=== PATIENT | male | born 1970 | race Caucasian/White ===

== ENCOUNTER 2018-12-15 13:12 | Inpatient (IN) | payer OTHER ==
[~2018-12-15] VITALS: Ht 188 cm; Wt 88.0 kg
[2018-12-15] VITALS (30 sets, daily range): BP systolic 110–158; BP diastolic 72–112
[~2018-12-15 13:12] MED LIST: ADDERALL 10 MG10 MG; AUGMENTIN 875875 M1 PO; LISINOPRIL2.5 MG PO; NEXIUM 40 MG CA40 M1 PO; PERCOCET 5-3251 EACH; TRILEPTAL150 MG
[2018-12-15 13:31] LABS: ABSOLUTE BASOPHILS 0.1 thou/uL (0.0-0.2); ABSOLUTE EOSINOPHILS 0.1 thou/uL (0.0-0.7); ABSOLUTE LYMPHOCYTES 1.8 thou/uL (0.8-5.3); ABSOLUTE MONOCYTES 0.6 thou/uL (0.0-1.2); ABSOLUTE NEUTROPHILS 3.7 thou/uL (1.6-8.1); BASOPHILS 2.2 %; EOSINOPHILS 1.7 %; HEMATOCRIT 47.9 % (42.0-52.0); HEMOGLOBIN 16.8 gm/dL (14.0-18.0); MCH 30.5 pg (26.0-34.0); MCV 87.1 fL (80.0-100.0); MPV 7.2 fl. (7.2-11.1); NUCLEATED RBCS 0 /100WBC; PLATELET COUNT* 323 thou/uL (150-400); POLYS 59.1 %; RDW-CV 13.8 % (10.5-14.5); WBC 6.3 thou/uL (4.0-11.0)
[2018-12-15 13:50] LABS: CALCIUM 9.6 mg/dL (8.5-10.1); CREATININE 1.3 mg/dL (0.6-1.3); POTASSIUM 4.1 mmol/L (3.5-5.1); TROPONIN-I LEVEL 0.08 ng/mL (<0.06)
[2018-12-15 13:56] LABS: ALBUMIN 4.2 g/dL (3.4-5.0); CK-MB MASS 1.4 ng/mL (<0.5-3.6); MAGNESIUM 1.7 mg/dL (1.8-2.4); TOTAL BILIRUBIN 0.3 mg/dL (<0.1-1.0); TOTAL PROTEIN 7.9 g/dL (6.4-8.2)
[2018-12-15 14:26] LABS: APTT 30.8 Seconds (25.0-31.3); INR 1.2; PROTIME 12.7 Seconds (9.20-11.50)
[2018-12-15] MEDS ORDERED: CIPRO500 MG PO (15:23)
[2018-12-15] MEDS ORDERED: LISINOPRIL10 MG PO (15:23)
[2018-12-15] MEDS ORDERED: VENTOLIN HFA INH8 GM INH (15:23)
[2018-12-15] MEDS ORDERED: WELLBUTRIN XL300 MG PO (15:24)
[2018-12-15] MEDS ORDERED: AZO URINARY P97.5 MG PO (15:25)
[2018-12-15] MEDS ORDERED: FLOMAX0.4 MG PO (15:26)
[2018-12-15] MEDS ORDERED: ZYRTEC10 M5 PO (15:27)
[2018-12-15] MEDS ORDERED: LOXAPINE10 MG PO (15:32)
[2018-12-15] MEDS ORDERED: TRILEPTAL600 MG PO (15:33)
[2018-12-15] MEDS ORDERED: CLONAZEPAM 1 MG1 M1 PO (15:34)
--- NOTE | 2018-12-15 15:34 | EKG ---
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 : 1970 Requested By: Rei Jackson Order Number: [id number] MD: Neeraj Sierra Measurements Intervals [place] Rate: 95 P: SC: QRS: 69 QRSD: 104 T: 79 QT: 351 QTc: 442 Interpretive Statements sinus rhythm Inferoposterior infarct, acute (LCx) ST depression V1-V3, suggest recording posterior leads No previous ECG available for comparison Electronically Signed On 12-15-2018 15:34:46 CDT by Neeraj Sierra [email or web address] <ELECTRONICALLY SIGNED> By: Neeraj Sierra MD, [facility] 12/15/18 1534 1317 1317 Neeraj Sierra MD, [facility] /EPI
[2018-12-15] MEDS ORDERED: MELATONIN5 M1 PO (15:36)
--- NOTE | 2018-12-15 15:36 | EKG ---
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
--- NOTE | 2018-12-15 18:49 | CARD ---
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 Procedure Narrative The patient was brought emergently to the Cardiac Catheterization Laboratory and was prepped and draped in a sterile manner. The right wrist was infiltrated with 1% Lidocaine subcutaneous anesthesia. A Slender Glidesheath sheath was inserted into the RRA. Coronary angiography was performed using coronary diagnostic catheters. The right coronary system was accessed and visualized with a JR4 catheter. The left coronary system was accessed and visualized with a JL4 catheter. The left ventricle was accessed and visualized with a Angled PIG catheter. Left ventricular/Aortic Valve gradient assessed via catheter pullback. Left ventriculogram was performed in [place] projection. The patient tolerated the procedure well and there were no complications associated with the procedure. There was no hematoma. sheath removed and vascband placed [place] [address] CARDIAC CATH REPORT Name: DENNISSHERIF BAER Room: [address] IN [facility].#: [id number] Admission: 12/15/18 Attend Phys: Neeraj Sierra MD, F Discharge: Date of : 66 Report #: [id number] Fentanyl 75 mcg Dose: 1030 mGy Contrast Type and Amount: Omnipaque 255 ml Coronary Angiography The patient's coronary anatomy is co- dominant. Diagnostic Cath Left Main 0% stenosis LAD 50% mid stenosis Circumflex 70% after om1 and acutely occluded after om2 Right Coronary 30% mid and 30% distal stenosis noted Left Ventriculography The left ventricular ejection fraction is estimated to be 40-45%. Left ventricular wall motion abnormalities are present. There is no mitral insufficiency. mild hypokinesis noted of the inferior wall Hemodynamics The aortic pressure is 143/88 mmHg with a mean of 95 mmHg. The left ventricular pressure is 145/20 mmHg with a mean of mmHg. The left ventricular end diastolic pressure is 25 mmHg. There was no gradient across the aortic valve upon pullback. Pullback from the left ventricle to the aorta revealed no gradient across the aortic valve. PCI Technique Lesion Anticoagulation was achieved with Heparin. bolus of iv aggrastat given Percutaneous coronary intervention was performed on the mid circumflex artery segment. The lesion stenosis prior to intervention was 100% with CORINNE 0 flow. A 6FR XB 3.5 100CM Guide Catheter was used to engage the lm ostium. A IG: BMW 190cm Interventional Guidewire was used to cross the lesion. BALLOON DILATION A Balloon catheter Trek RX 2.5 X 8 was inserted and inflated up to 12.00atm for 42seconds. Repeat angiography revealed the following post-dilatation results: 60% stenosis. STENT DEPLOYMENT A drug-eluting stent Hardwick RX Stent 3.0X26mm was inserted and inflated up to 12.00atm for 42seconds. Repeat angiography revealed the following post-stent deployment results: 0% [place] [address] CARDIAC CATH REPORT Name: DENNISSHERIF BAER Room: [address] IN [facility]#: [id number] Admission: 12/15/18 Attend Phys: Neeraj Sierra MD, F Discharge: Date of : 66 Report #: [id number] Final angiography reveals 0 % stenosis with CORINNE 3 flow. COMMENTS Small second marginal branch appeared to be occluded at the end of the procedure as the stent covered the ostium of the vessel. Conclusion 1. Acute occlusion of the mid circumflex 2. placement of a single drug eluting stent in the mid circumflex 3. LVEF 40-45% Recommendations Smoking Cessation Aggressive Medical Therapy Medications Administered Ticagrelor <ELECTRONICALLY SIGNED> By: Neeraj Sierra MD, [facility] 12/15/181848 48 48Damalcolm Sierra MD, [facility] /INF
[2018-12-16] VITALS (49 sets, daily range): BP systolic 92–125; BP diastolic 48–98
[2018-12-16 03:27] LABS: ABSOLUTE BASOPHILS 0.1 thou/uL (0.0-0.2); ABSOLUTE EOSINOPHILS 0.1 thou/uL (0.0-0.7); ABSOLUTE LYMPHOCYTES 1.1 thou/uL (0.8-5.3); ABSOLUTE MONOCYTES 0.8 thou/uL (0.0-1.2); ABSOLUTE NEUTROPHILS 5.5 thou/uL (1.6-8.1); BASOPHILS 0.9 %; EOSINOPHILS 1.3 %; HEMATOCRIT 43.6 % (42.0-52.0); HEMOGLOBIN 15.2 gm/dL (14.0-18.0); LYMPHOCYTES 14.1 %; MCH 30.3 pg (26.0-34.0); MCHC 34.7 g/dL (28.0-37.0); MCV 87.2 fL (80.0-100.0); MONOCYTES 10.3 %; NUCLEATED RBCS 0 /100WBC; PLATELET COUNT* 254 thou/uL (150-400); POLYS 73.4 %; RDW-CV 14.2 % (10.5-14.5); WBC 7.5 thou/uL (4.0-11.0)
[2018-12-16 03:39] LABS: CALCIUM 8.9 mg/dL (8.5-10.1); CREATININE 1.1 mg/dL (0.6-1.3); POTASSIUM 4.4 mmol/L (3.5-5.1)
--- NOTE | 2018-12-16 10:44 | EKG ---
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: : 1970 Requested By: Neeraj Sierra Order Number: [id number] Reading MD: Terrance Wiley Measurements Intervals [place] Rate: 76 P: 67 [place]: 178 QRS: -22 QRSD: 98 T: 141 QT: 418 QTc: 471 Interpretive Statements Sinus rhythm Borderline left axis deviation Borderline low voltage, extremity leads Abnormal R-wave progression, early transition Abnormal T, consider ischemia, lateral leads Compared to ECG 12/15/2018 14:46:10 T-wave abnormality now present Possible ischemia now present Electronically Signed On 12-16-2018 10:44:29 CDT by Terrance Wiley [email or web address] <ELECTRONICALLY SIGNED> By: Terrance Wiley MD, FACC 12/16/18 1044 0906 0906 Terrance Wiley MD, FAC /EPI
--- NOTE | 2018-12-16 15:53 | H ---
[address] [address] HISTORY AND PHYSICAL Name: SHERIF CAMERON Room: [address] IN .R.#: [id number] Admission: 12/15/18 Attend Phys: Neeraj Sierra MD, F Discharge: Date of : 66 Report #: [id number] THIS REPORT FOR: //name// CC: Neeraj Alonso DO DATE OF SERVICE: 12/15/2018 HISTORY OF PRESENT ILLNESS: The patient is a 48-year-old white male who I was asked to see in the Emergency Room after he complained of chest pain. No old records available. The patient has no previous history of heart disease. He is not very active at this time. He has had no previous cardiac evaluation. He was doing well until today about an hour ago, he had the sudden onset of tightness in his chest, went into his jaw, became diaphoretic and is hard to breathe. He was lying on the couch at that time. He came in to the Emergency Room with his . He is found to have an acute inferior STEMI. I was asked to see him on an emergent basis. He does get short of breath with exertion. He has had no bleeding or fever. He does have a chronic cough. No swelling of his feet. He has had no palpitations or syncope. PAST MEDICAL HISTORY: He has had 3 abdominal surgeries for Crohn's disease. He has had an appendectomy, finger surgery, hypertension, manic depressive illness. MEDICATIONS: His medications include lisinopril, Wellbutrin in an effort to stop smoking, ____, loxapine, Klonopin as needed. ALLERGIES: He has an allergy to SULFA DRUGS. FAMILY HISTORY: His mother had heart disease. SOCIAL HISTORY: He is . He and his live in [place]. 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 He smokes 2 packs of cigarettes a day. REVIEW OF SYSTEMS: He has had no history of stroke. He does have a chronic cough. He has had a peptic ulcer years ago. He bleeds from hemorrhoids occasionally. No cancer. He has a history of manic depressive illness, sees a psychiatrist. No chronic skin condition. PHYSICAL EXAMINATION: GENERAL: Revealed a young male, who appeared in severe distress because of his chest pain. VITAL SIGNS: Blood pressure 130/80, pulse is 90. HEENT: He was anicteric. Conjunctivae pink. Mucous membranes appear dry. NECK: [place] [address] HISTORY AND PHYSICAL Name: SHERIF CAMERON Room: [address] IN ..#: [id number] Admission: 12/15/18 Attend Phys: Neeraj Sierra MD, F Discharge: Date of : 66 Report #: [id number] CHEST: Clear to auscultation. CARDIAC: Regular rate and rhythm. ABDOMEN: Soft. EXTREMITIES: Had no edema. Posterior tibial pulse 2+ bilaterally. SKIN: Warm, dry. NEUROLOGIC: Nonfocal. DIAGNOSTIC STUDIES: ECG showed sinus rhythm. There is ST segment elevation of up to a millimeter in II, III, aVF; reciprocal ST segment depression in lead V2, V3 and V4. IMPRESSION AND RECOMMENDATIONS: 1. Acute inferior ST elevation myocardial infarction. Recommend urgent cardiac catheterization. 2. Hypertension. The patient is on an JUDIE inhibitor. 3. Manic depressive illness. The patient is followed by Psychiatry. 4. Tobacco abuse. The patient currently takes Wellbutrin. 5. Chronic obstructive pulmonary disease with chronic bronchitis. <ELECTRONICALLY SIGNED> By: Neeraj Sierra MD, FACC 12/16/18 1553 1337 1709Damalcolm Sierra MD, FACC /nt
[2018-12-17] VITALS: BP 112/874
[2018-12-17 04:00] VITALS: BP 106/66
[2018-12-17 05:43] LABS: CHOLESTEROL 223 mg/dL (<200); HDL CHOLESTEROL 46 mg/dL (>40); LDL CHOLESTEROL 157 mg/dL (<100); TC:HDL 4.8 Ratio (Not establshd); TRIGLYCERIDE 104 mg/dL (<150); VLDL 21 mg/dL (<40)
[2018-12-17 05:50] LABS: SERUM ASSESSMENT Clear
[2018-12-17 08:00] VITALS: BP 120/75
--- NOTE | 2018-12-17 11:14 | EKG ---
[place] [address] ELECTROCARDIOGRAM REPORT Name: SHERIF CAMERON Room: [address] ADM IN .R.#: [id number] Admission: 12/15/18 Attend Phys: Neeraj Sierra MD, F Discharge: Date of : 66 Report #: [id number] THIS REPORT FOR: //name// [facility] Test Date: 2018-12-17 Test Time: 08:15:51 Pat Name: SHERIF CAMERON Department: Room: 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 12/17/18 1113 0815 4 Neeraj Sierra MD, [facility] /EPI
[2018-12-17 11:37] VITALS: BP 102/71
[2018-12-17 12:00] VITALS: BP 113/79
[2018-12-17] MEDS ORDERED: ASPIR 8181 MG PO (12:04)
[2018-12-17] MEDS ORDERED: ATORVASTATIN CA40 MG PO (12:05)
[2018-12-17] MEDS ORDERED: APAP650 PO (12:07)
[2018-12-17] MEDS ORDERED: CARVEDILOL3.125 MG PO (12:08)
[2018-12-17] MEDS ORDERED: BRILINTA90 MG PO (12:09)
[2018-12-17] MEDS ORDERED: NITROGLYCERIN0.4 MG SUBLING (12:10)
[2018-12-17] MEDS ORDERED: NICOTINE TRANSD21 M1 (12:11)
--- NOTE | 2018-12-18 13:22 | D ---
[address] [address] DISCHARGE SUMMARY Name: SHERIF CAMERON Room: [address] IN M.R.#: [id number] Admission: 12/15/18 Attend Phys: Neeraj Sierra MD, F Discharge: 12/17/18 Date of : 66 Report #: [id number] THIS REPORT FOR: //name// CC: Neeraj Alonso DATE OF SERVICE: 12/17/2018 DISCHARGE DIAGNOSES: 1. Acute inferior ST segment elevation myocardial infarction. 2. Coronary artery disease. 3. Ischemic cardiomyopathy. 4. Tobacco abuse. 5. Hypertension. 6. Manic depressive illness. 7. Hypercholesterolemia. CONSULTANTS: None. PROCEDURES: Emergent left heart catheterization with placement of a single drug-eluting stent in the circumflex artery via the radial approach. PRIMARY CARE PHYSICIAN: Dr. Pj Alonso. HISTORY OF PRESENT ILLNESS: The patient is a 48-year-old white male who was brought to the Emergency Room complaining of chest pain. The patient had no history of heart disease. He is not very active at this time. He has had no previous cardiac evaluation. On the day of admission, he was at home when he had the sudden onset of tightness in his chest, went into his jaw, became diaphoretic, is hard to breathe. His brought him to the Emergency Room. He was found to be having acute inferior STEMI. I was asked to see him on an emergent basis. He had no recent bleeding or fever. He does have chronic cough. He has no swelling of his feet. Denies any history of palpitation or syncope. PAST MEDICAL HISTORY: Significant for 3 abdominal surgeries for Crohn disease, with now in remission. He has had a previous appendectomy, finger surgery. He has a history of hypertension, manic depressive illness and is followed by a psychiatrist. MEDICATIONS: On admission included lisinopril for hypertension, Wellbutrin in an effort to stop smoking. He was on Zyrtec for seasonal allergies, Nexium, loxapine, Trileptal, Flomax. ALLERGIES: HE HAS AN ALLERGY [place] [address] DISCHARGE SUMMARY Name: SHERIF CAMERON Room: [address]#: [id number] Admission: 12/15/18 Attend Phys: Neeraj Sierra MD, F Discharge: 12/17/18 Date of : 66 Report #: [id number] PHYSICAL EXAMINATION: GENERAL: On admission, a young male, appeared in severe distress because of chest pain. VITAL SIGNS: Blood pressure 130/80, pulse 90. CHEST: Clear to auscultation. CARDIAC: Regular rate and rhythm. ABDOMEN: Soft. EXTREMITIES: Had no edema. SKIN: Warm, dry. LABORATORY DATA: ECG, sinus rhythm, ST segment elevation up to 1 mm in 2, 3, aVF, reciprocal ST segment depression in V2, V3, V4. He had a chest x-ray on admission, showed normal heart size, clear lung green. Sodium 133, creatinine 1.1, glucose 108. Liver function studies were normal. His troponin on admission was 0.08. Cholesterol 223, triglyceride 104, HDL 46, LDL 157. White blood cell count 7.5, hemoglobin 15.2, platelet count 323,000. HOSPITAL COURSE: The patient was brought urgently to the cardiac catheterization lab. I performed an emergent cardiac catheterization from the right radial artery. Results showed only 50% narrowing in the mid LAD. The circumflex had a mid 70% stenosis and was completely occluded after the second marginal branch. The right coronary artery had only 30% stenosis. He was given heparin and Aggrastat. I then placed a single drug-eluting stent in the circumflex with reperfusion. He was noted to have a codominant circumflex. Ejection fraction was 45% with inferior wall hypokinesis. He tolerated the procedure well. He had no further bleeding from the right wrist. He denied any significant shortness of breath or lightheadedness after the procedure. He did have some residual chest pain that resolved. Prior to discharge, he was ambulating with cardiac rehabilitation, had no further complaints. Followup ECG showed a sinus rhythm, evidence of previous inferior infarction. Followup lab work included a peak troponin of 34. There is no significant drop in hemoglobin and platelets after the procedure. At the time of discharge, the patient is ambulating, had no further complaints. His blood pressure 120/70, pulse 60 at the time of discharge. He was discharged on the following medications: Aspirin 81 mg a day, Lipitor 40 mg a day. He was to continue his bupropion and Zyrtec. He was finishing a course of Cipro for recently diagnosed urinary tract infection. He was on Nexium 40 mg a day. Because of low blood pressure, he was taken off lisinopril. He was to continue loxapine as needed. I recommended nicotine patch for smoking cessation. He was started on Coreg 3.125 mg twice a day for his coronary artery disease and left ventricular dysfunction. He was to continue Trileptal, Flomax. He was started on Brilinta 90 mg twice a day, take for up to one year following his myocardial infarction. He was given a prescription for nitroglycerin to take as needed for chest pain. He also takes clonazepam as needed. He was discharged to return to care of Dr. Alonso for routine medical care. He is scheduled to see my nurse practitioner in 1 week. I plan on seeing him in the Cardiology Clinic in 6 weeks. He is felt to have a [facility] [address] [place] [address] DISCHARGE SUMMARY Name: DENNISSHERIF BAER Room: [address] IN ..#: [id number] Admission: 12/15/18 Attend Phys: Neeraj Sierra MD, F Discharge: 12/17/18 Date of : 66 Report #: [id number] good prognosis from cardiac standpoint. It was recommended that he contact my office if he had recurrent chest pain, shortness of breath or bleeding. <ELECTRONICALLY SIGNED> By: Neeraj Sierra MD, FACC 12/18/18 1322 1140 1704Dkevin Sierra MD, FACC /nt
== END 2018-12-17 13:01 | disposition home or self-care (01) | DRG 246 ==
LOC: M.ERS 13:12 → M.CL 13:12 → M.TBA-CV 13:35 → M.ICU 13:35 → M.2W 12-16 16:02
PROVIDERS: Family Medicine; ADMIT Internal Medicine Cardiovascular Disease
PROC: 027034Z Dilation of Coronary Artery, One Artery with Drug-eluting Intraluminal Device, Percutaneous Approach (ICD-10-PCS; principal; 2018-12-15)
PROC: 4A023N7 Measurement of Cardiac Sampling and Pressure, Left Heart, Percutaneous Approach (ICD-10-PCS; 2018-12-15)
PROC: B2111ZZ Fluoroscopy of Multiple Coronary Arteries using Low Osmolar Contrast (ICD-10-PCS; 2018-12-15)
PROC: B2151ZZ Fluoroscopy of Left Heart using Low Osmolar Contrast (ICD-10-PCS; 2018-12-15)
DX: I21.19 ST elevation (STEMI) myocardial infarction involving other coronary artery of inferior wall (principal); I50.21 Acute systolic (congestive) heart failure; K50.90 Crohn's disease, unspecified, without complications; F30.9 Manic episode, unspecified; I25.5 Ischemic cardiomyopathy; I11.0 Hypertensive heart disease with heart failure; I25.10 Atherosclerotic heart disease of native coronary artery without angina pectoris; E78.00 Pure hypercholesterolemia, unspecified; F17.210 Nicotine dependence, cigarettes, uncomplicated; J44.9 Chronic obstructive pulmonary disease, unspecified; Z90.89 Acquired absence of other organs; Z79.899 Other long term (current) drug therapy; Z88.2 Allergy status to sulfonamides; Z82.49 Family history of ischemic heart disease and other diseases of the circulatory system; Z87.440 Personal history of urinary (tract) infections

== ENCOUNTER → 2019-02-09 | Outpatient (CLI) | payer OTHER ==
[~2019-02-09] MED LIST changes: +APAP650 PO; +ASPIR 8181 MG PO; +ATORVASTATIN CA40 MG PO; +AZO URINARY P97.5 MG PO; +BRILINTA90 MG PO; +CARVEDILOL3.125 MG PO; +CIPRO500 MG PO; +CLONAZEPAM 1 MG1 M1 PO; +FLOMAX0.4 MG PO; +LISINOPRIL10 MG PO; +LOXAPINE10 MG PO; +MELATONIN5 M1 PO; +NICOTINE TRANSD21 M1; +NITROGLYCERIN0.4 MG SUBLING; +TRILEPTAL600 MG PO; +VENTOLIN HFA INH8 GM INH; +WELLBUTRIN XL300 MG PO; +ZYRTEC10 M5 PO
[2019-02-09 07:09] LABS: ALBUMIN 4.2 g/dL (3.4-5.0); ALKALINE PHOSPHATASE 57 U/L (46-116); ANION GAP 5 mmol/L (7-16); BUN 14 mg/dL (7-18); CALCIUM 8.9 mg/dL (8.5-10.1); CHLORIDE 94 mmol/L (98-107); CHOLESTEROL 151 mg/dL (<200); CO2 32 mmol/L (21-32); CREATININE 1.1 mg/dL (0.6-1.3); DIRECT BILIRUBIN 0.1 mg/dL (<0.1-0.3); GLUCOSE 108 mg/dL (70-99); HDL CHOLESTEROL 52 mg/dL (>40); LDL CHOLESTEROL 86 mg/dL (<100); POTASSIUM 4.6 mmol/L (3.5-5.1); SGOT 18 U/L (15-37); SGPT 42 U/L (30-65); SODIUM 131 mmol/L (136-145); TC:HDL 2.9 Ratio (Not establshd); TOTAL BILIRUBIN 0.5 mg/dL (<0.1-1.0); TOTAL PROTEIN 7.1 g/dL (6.4-8.2); TRIGLYCERIDE 69 mg/dL (<150); VLDL 14 mg/dL (<40)
[2019-02-09 07:18] LABS: SERUM ASSESSMENT Clear
== END ==
LOC: M.LAB 06:26
PROVIDERS: Registered Nurse
DX: E78.00 Pure hypercholesterolemia, unspecified (principal); I25.5 Ischemic cardiomyopathy

== ENCOUNTER → 2019-08-10 | Outpatient (CLI) | payer OTHER ==
--- NOTE | 2019-08-10 13:23 | 2DMMODE ---
[place] [address] 2 D/M-MODE ECHOCARDIOGRAM Name: SHERIF CAMERON Room: [facility]#: [id number] Admission: 08/10/19 Attend Phys: Neeraj Sierra MD Discharge: Date of : 66 Date of Service: 08/10/19 1323 Report #: [id number] THIS REPORT FOR: //name// APPROVED REPORT Study performed: 08/10/2019 10:47:09 EXAM: Comprehensive 2D, Doppler, and color-flow Echocardiogram Patient Location: Out-Patient BSA: 2.11 HR: 52 bpm BP: 120/80 mmHg Other Information Study Quality: Good Indications Cardiomyopathy 2D Dimensions IVSd: 10.84 (7-11mm) LVOT Diam: 20.24 (18-24mm) LVDd: 48.18 mm PWd: 11.47 (7-11mm) Ascending Ao: 33.94 (22-36mm) LVDs: 30.77 (25-40mm) Aortic Root: 32.83 mm Volumes Left Atrial Volume (Systole) LA ESV Index: 19.40 mL/m2 Aortic Valve AoV Peak Darshan.: 0.92 m/s AO Peak Gr.: 3.36 mmHg LVOT Max P.44 mmHg AO Mean Gr.: 1.68 mmHg LVOT Mean P.33 mmHg LVOT Max V: 0.93 m/s AO V2 VTI: 19.25 cm LVOT Mean V: 0.51 m/s ALAN (VTI): 3.36 cm2 LVOT V1 VTI: 20.11 cm Mitral Valve E/A Ratio: 1.23 MV Decel. Time: 209.27 ms MV E Max Darshan.: 0.63 m/s MV PHT: 60.69 ms MVA (PHT): 3.63 [place] [address] 2 D/M-MODE ECHOCARDIOGRAM Name: SHERIF CAMERON Room: [facility]#: [id number] Admission: 08/10/19 Attend Phys: Neeraj Sierra MD Discharge: Date of : 66 Date of Service: 08/10/19 1323 Report #: [id number] TDI E/Lateral E': 7.00 E/Medial E': 6.30 Medial E' Darshan.: 0.10 m/s Lateral E' Darshan.: 0.09 m/s Pulmonary Valve PV Peak Darshan.: 0.97 m/s PV Peak Gr.: 3.80 mmHg Tricuspid Valve RAP Estimate: 5.00 mmHg TR Peak Gr.: 16.53 mmHg RVSP: 21.53 mmHg PA Pressure: 21.53 mmHg Left Ventricle The left ventricle is normal size. There is normal LV segmental wall motion. There is normal left ventricular wall thickness. Left ventricular systolic function is normal. The left ventricular ejection fraction is within the normal range. LVEF is 55-60%. The left ventricular diastolic function is normal. Right Ventricle The right ventricle is normal size. The right ventricular systolic function is normal. Atria The left atrium size is normal. The right atrium size is normal. Aortic Valve The aortic valve is normal in structure. No aortic regurgitation is present. There is no aortic valvular stenosis. Mitral Valve The mitral valve is normal in structure. Mild mitral regurgitation. No evidence of mitral valve stenosis. Tricuspid Valve The tricuspid valve is normal in structure. Mild tricuspid regurgitation. estimated pa pressure 25 mm hg Pulmonic Valve The pulmonary valve is normal in structure. Mild pulmonic reg[place]itation[place] [address] 2 D/M-MODE ECHOCARDIOGRAM Name: SHERIF CAMERON Room: [facility]#: [id number] Admission: 08/10/19 Attend Phys: Neeraj Sierra MD Discharge: Date of : 66 Date of Service: 08/10/19 1323 Report #: [id number] The aortic root is normal in size. IVC is normal in size and collapses >50% with inspiration. Pericardium There is no pericardial effusion. <Conclusion> Left ventricular systolic function is normal. The left ventricular ejection fraction is within the normal range. <ELECTRONICALLY SIGNED> By: Neeraj Sierra MD, FACC 08/10/19 1323 22 22 Neeraj Sierra MD, FACC /INF
== END ==
LOC: M.CRD 10:49
DX: I08.8 Other rheumatic multiple valve diseases (principal)

== ENCOUNTER 2019-09-01 20:14 | Emergency (ER) | payer MEDICARE ==
[~2019-09-01] VITALS: Ht 188 cm; Wt 83.9 kg
[2019-09-01] MEDS ORDERED: LISINOPRIL2.5 MG PO (20:30)
[2019-09-01 21:14] LABS: ABSOLUTE EOSINOPHILS 0.1 thou/uL (0.0-0.7); ABSOLUTE LYMPHOCYTES 1.4 thou/uL (0.8-5.3); ABSOLUTE MONOCYTES 0.5 thou/uL (0.0-1.2); BASOPHILS 1.1 %; EOSINOPHILS 2.6 %; HEMATOCRIT 38.1 % (42.0-52.0); HEMOGLOBIN 13.5 gm/dL (14.0-18.0); LYMPHOCYTES 33.7 %; MCH 31.1 pg (26.0-34.0); MCHC 35.4 g/dL (28.0-37.0); MCV 88.1 fL (80.0-100.0); MONOCYTES 11.8 %; MPV 7.4 fl. (7.2-11.1); NUCLEATED RBCS 0 /100WBC; PLATELET COUNT* 221 thou/uL (150-400); POLYS 50.8 %; RBC 4.33 mil/uL (4.50-6.00); RDW-CV 13.4 % (10.5-14.5)
[2019-09-01 21:20] LABS: CALCIUM 8.5 mg/dL (8.5-10.1)
[2019-09-01 21:24] LABS: TOTAL BILIRUBIN 0.4 mg/dL (<0.1-1.0); TOTAL PROTEIN 6.9 g/dL (6.4-8.2)
[2019-09-01] MEDS ORDERED: ZOFRAN ODT4 MG SUBLING (21:24)
[2019-09-01 22:05] VITALS: BP 142/94
== END 2019-09-01 22:00 | disposition home or self-care (01) ==
LOC: M.ERS 20:14
PROVIDERS: Family Medicine
DX: R11.0 Nausea (principal); R19.7 Diarrhea, unspecified; K21.9 Gastro-esophageal reflux disease without esophagitis; I10 Essential (primary) hypertension; Z88.2 Allergy status to sulfonamides

== ENCOUNTER → 2020-08-22 | Outpatient (CLI) | payer MEDICARE ==
[~2020-08-22] MED LIST changes: +ZOFRAN ODT4 MG SUBLING
--- NOTE | 2020-08-22 16:57 | EXE ---
[place] [address] STRESS ECHOCARDIOGRAM Name: SHERIF CAMERON Room: [facility]#: [id number] Admission: 08/22/20 Attend Phys: Neeraj Sierra MD Discharge: Date of : 66 Date of Service: 08/22/20 1657 Report #: [id number] THIS REPORT FOR: cc: Pj Alonso Gregg R. DO Blick, David R. MD [facility] ~ APPROVED REPORT Study performed: 08/22/2020 15:21:43 Exam: Stress Echocardiogram Indication: Chest pain Patient Location: Out-Patient Stress Nurse: Mila Sanz RN, Jaci Sanchez, [place] Supervising Physician: Neeraj Sierra MD Ht: 6 ft 2 in HR: 76 bpm BP: 126/82 mmHg Medical History Medical History: CAD s/p stent, Hx of [place], STEMI Cardiac Risk Factors: Age, , Hyperlipidemia, HTN, Tobacco History (Former) Procedure The patient underwent an Exercise Stress Test using the Terry Protocol. Blood pressure, heart rate, and EKG were monitored. An Echocardiogram was performed by emissions testing and repair technician in four stages in quad fashion. At peak stress, four selected images were obtained and placed side by side with resting images for comparison. Stress Test Details Stress Test: Exercise stress testing was performed using a Terry protocol. HR Resting HR: 76 bpm Max Heart Rate (APMHR): 168 bpm Max HR Achieved: 160 bpm Target HR (85% APMHR): 142 bpm % of APMHR: 95 Recovery HR: 100 bpm HR response to stress: Normal HR response to stress BP Resting BP: 126/82 mmHg Max BP: 177/92 [place] [address] STRESS ECHOCARDIOGRAM Name: SHERIF CAMERON Room: [facility]#: [id number] Admission: 08/22/20 Attend Phys: Neeraj Sierra MD Discharge: Date of : 66 Date of Service: 08/22/20 1657 Report #: [id number] Recovery BP: 141/101 mmHg BP response to stress: Normal blood pressure response to stress. ECG Resting ECG: Sinus Rhythm, nonspecific ST-T abnormalities Stress ECG: Sinus Tachycardia ST Change: Normal Maximum ST Deviation: 0 mm Arrhythmia: APC's Recovery ECG: Sinus Rhythm Recovery ST Change: Normal Recovery ST Deviation: 0 mm Recovery Arrhythmia: None Clinical Reason for Termination: Completed protocol Exercise duration: 9 min 11 sec Highest Stage Achieved: Stage 3: 3.4 mph at 14% grade. Exercise capacity: 10.44 METs Pre-Stress Echo The resting Echocardiogram showed normal left ventricular contractility with an estimated Ejection Fraction of about 55-60%. Post-Stress Echo The stress Echocardiogram showed normal left ventricular contractility with an estimated Ejection Fraction of about >70%. Compared to rest, there were no stress-induced wall motion abnormalities. Conclusion Clinical Response: Non-ischemic Exercise Capacity: Average Stress ECG Response: Non-ischemic Stress Echo Images: Non-ischemic low risk stress echo for predicting future cardiac events Other Information Study Quality: [place] [address] STRESS ECHOCARDIOGRAM Name: SHERIF CAMERON Room: [facility]#: [id number] Admission: 08/22/20 Attend Phys: Neeraj Sierra MD Discharge: Date of : 66 Date of Service: 08/22/201656 Report #: [id number] <Conclusion> low risk stress echo for predicting future cardiac events <ELECTRONICALLY SIGNED> By: Neeraj Sierra MD, FACC 08/22/201656 56 56 Neeraj Sierra MD, FACC /INF
== END ==
LOC: M.CRD 07-12 15:00
PROVIDERS: ATTEND Internal Medicine Cardiovascular Disease
DX: I21.19 ST elevation (STEMI) myocardial infarction involving other coronary artery of inferior wall (principal); R00.0 Tachycardia, unspecified